=== PATIENT | male | born 1940 | race Caucasian/White ===

== ENCOUNTER 2016-12-23 13:52 | Emergency (ER) | payer MEDICARE, BC ==
[~2016-12-23] VITALS: Ht 177.8 cm; Wt 100.1 kg
[2016-12-23 13:55] VITALS: BP 162/80
== END 2016-12-23 15:18 | disposition home or self-care (01) ==
LOC: ED 15:12
DX: S00.03XA Contusion of scalp, initial encounter (principal); I10 Essential (primary) hypertension; W21.09XA Struck by other hit or thrown ball, initial encounter; Y93.89 Activity, other specified; Y92.89 Other specified places as the place of occurrence of the external cause; Y99.8 Other external cause status
CPT/HCPCS: 70450; 72125; 99284